=== PATIENT | female | born 1980 | race American Indian/Alaskan Native ===

== ENCOUNTER 2016-11-03 09:02 | Outpatient (CLI) | payer BC ==
--- NOTE | 2016-11-03 11:27 | Ultrasound Report ---
Sonogram right upper quadrant: History: Fatty liver seen on CT scan. Findings: There is fatty liver identified. There is a hyperechoic mass identified at left lobe of liver measuring 4.2 x 4.5 x 5.8 cm. Gallbladder wall thickness 2 mm. No calculi in the gallbladder. Common bile diameter 5 mm. No intrahepatic duct dilatation. Right kidney 10.5 x 5.2 x 5.1 cm. Cortical thickness 1.3 cm. Pancreas normal. Impression: Large mass left lobe of the liver. Further evaluation with a CT scan and/or MRI scan may be recommended.
== END 2016-11-03 09:03 | disposition home or self-care (01) ==
LOC: SPVWC 09:02
PROVIDERS: ATTEND Internal Medicine Endocrinology, Diabetes & Metabolism
DX: K76.0 Fatty (change of) liver, not elsewhere classified (principal)
CPT/HCPCS: 76705

== ENCOUNTER 2016-11-24 08:31 | Outpatient (CLI) | payer BC ==
--- NOTE | 2016-11-24 13:55 | Magnetic Resonance Report ---
MRI ABDOMEN WITHOUT CONTRAST : 11/24/16 CLINICAL: Liver mass. COMPARISON :06/17/11 MRI Abdomen and 09/04/12 CT Abdomen TECHNIQUE: Axial T1 in phase and opposed phase, coronal and axial T2 and axial T2 fat sat sequences on a 1.5 Vera magnet. FINDINGS: Normal liver size, contour and overall signal. An irregular mass of hepatic segment 4A measures approximately 5.3-4.2 x 3.6 cm. It is isointense on T1, hypointense on 2-D fiesta fat-sat and mildly hyperintense on T2. It demonstrates uniform signal dropout on opposed phase imaging and vessels course through it. The mass is not significantly changed in size compared to prior exams but has more distinct signal characteristics and is not as subtle as on prior exams. No other liver mass. The bile ducts and gallbladder are normal. Normal stomach, duodenum, pancreas and spleen. Normal adrenal glands and kidneys. The aorta and inferior vena cava are normal. No ascites. The imaged portions of small bowel and colon are normal. IMPRESSION: 1. Focal fatty infiltration of the liver manifesting as a 5.3 cm mass of hepatic segment 4A. 2. No significant change compared to prior exams. 3. Normal biliary tract and pancreas.
== END 2016-11-24 08:32 | disposition home or self-care (01) ==
LOC: SPVIMAG 08:31
PROVIDERS: ATTEND Internal Medicine Endocrinology, Diabetes & Metabolism
DX: K76.0 Fatty (change of) liver, not elsewhere classified (principal); R16.0 Hepatomegaly, not elsewhere classified; K76.89 Other specified diseases of liver
CPT/HCPCS: 74181